=== PATIENT | female | born 1995 | race African-American/Black ===

== ENCOUNTER 2025-09-10 05:38 | Emergency (ER) | payer OTHER ==
[~2025-09-10] VITALS: Ht 162.6 cm; Wt 76.4 kg
[2025-09-10 07:46] LABS: BASO # 0.0 10^3/uL (0.0-0.2); BASO % 0.6 % (0.0-1.0); EOS # 0.1 10^3/uL (0.0-0.5); EOS % 1.7 % (0.0-3.0); LYMPH # 2.5 10^3/uL (1.5-5.0); LYMPH % 46.7 % (24.0-44.0); MONO # 0.5 10^3/uL (0.0-0.8); MONO % 9.3 % (2.0-8.0); NEUTROPHILS # 2.3 10^3/uL (1.5-8.5); NEUTROPHILS % 41.7 % (36.0-66.0); PLATELET COUNT, AUTOMATED 308 10^3/uL (150-450)
[2025-09-10 08:05] LABS: HCG, SERUM QUALITATIVE NEGATIVE (NEGATIVE)
[2025-09-10 08:06] LABS: ALT/SGPT 15 U/L (7.0-40); AST/SGOT 18 U/L (<34); CALCIUM LEVEL 8.3 MG/DL (8.5-10.1); CARBON DIOXIDE LEVEL 22 MMOL/L (20-31); CHLORIDE LEVEL 107 MMOL/L (98-107); CREATININE FOR GFR 0.56 MG/DL (0.55-1.30); GLOMERULAR FILTRATION RATE > 90.0 (>60); POTASSIUM SERUM 4.0 MMOL/L (3.5-5.1); SODIUM LEVEL 143 MMOL/L (136-145)
[2025-09-10] MEDS ORDERED: ISOVUE-370 76% 100 ML VIAL As Ordered ONE (08:10)
[2025-09-10] MEDS: NS (Normal Saline) 0.9% 1,000 ML IV ONE (08:33)
[2025-09-10] MEDS: ONDANSETRON 4MG/2ML VIAL IV ONE (08:33)
[2025-09-10] MEDS: FAMOTIDINE 20 MG/2 ML VIAL IVP ONE (08:33)
[2025-09-10] MEDS: KETOROLAC 30 MG/ML 1 ML VIAL IV ONE (08:33)
[2025-09-10] MEDS ORDERED: ALYA1TAB PO (10:21)
[2025-09-10] MEDS ORDERED: ONDA-282 PO (12:55)
[2025-09-10 12:56] VITALS: BP 133/94; O2SAT 98
[2025-09-10 13:00] VITALS: TEMP 99.4
== END 2025-09-10 13:03 | disposition home or self-care (01) ==
LOC: M ED 05:38
DX: A05.9 Bacterial foodborne intoxication, unspecified (principal); R11.2 Nausea with vomiting, unspecified; R19.7 Diarrhea, unspecified; Z79.899 Other long term (current) drug therapy
CPT/HCPCS: 74177; 80048; 80076; 83690; 84703; 85025; 96361; 96374; 99285; J1308; J1885; J2405; Q9967